=== PATIENT | female | born 1995 ===

== ENCOUNTER 2023-12-04 20:44 | Observation (INO) | payer BC, SELFPAY ==
[2023-12-04] MEDS: LR 1000 IV ×2 (21:35→23:47)
[2023-12-04 21:41] VITALS: BP 111/70; BMI 29.1
[2023-12-04] MEDS: ADALAT 20 MG PO (21:53)
[2023-12-04] MEDS: CELESTONE SOLUSPAN 2 MG IM (21:56)
[2023-12-04 22:20] LABS: % Basophils 0.3 % (0-2); % Eosinophils 0.9 % (0-6); % Immature Granulocytes 0.6 % (0-0.5); % Lymphocytes 21.2 % (20.5-51.1); % Monocytes 8.3 % (1.7-9.3); % Neutrophils 68.7 % (42.2-75.2); Absolute Eosinophils 0.1 10^3/uL (0-0.7); Absolute Immature Granulocytes 0.1 10^3/uL (0-0.05); Absolute Lymphocytes 2.2 10^3/uL (1.2-3.4); Absolute Monocytes 0.9 10^3/uL (0.1-0.6); Absolute Neutrophils 7.1 10^3/uL (1.4-6.5); Hematocrit 31.5 % (37.0-47.0); Hemoglobin 11.5 g/dL (12.0-16.0); Mean Corp Hgb Conc. 36.5 g/dL (33.0-37.0); Mean Corpuscular Hgb 31.1 pg (27.0-31.0); Mean Corpuscular Volume 85.1 fL (81.0-99.0); Mean Platelet Volume 11.5 fL (7.4-10.4); Nucleated Red Blood Cells % 0 %; Platelet Count 210 10^3/uL (130-400); Red Cell Dist. Width 12.2 % (11.5-14.5); White Blood Cell Count 10.3 10^3/uL (4.8-10.8)
[2023-12-04 22:31] LABS: Urine Albumin Negative (Neg - Trace); Urine Bilirubin Negative (Negative); Urine Character Clear (Clear); Urine Color Yellow; Urine Glucose Negative (Negative); Urine Ketone Negative (Negative); Urine Leukocyte Negative (Negative); Urine Nitrite Negative (Negative); Urine Occult Blood Negative (Negative); Urine Urobilinogen Negative (Neg - 1+)
[2023-12-05] MEDS: ADALAT 10 MG PO ×4 (04:17→21:56)
--- NOTE | 2023-12-05 13:20 | CON.NEO ---
Consultation
-
Date/Time Consultation Requested: 12/05/23 @ 0710
Date/Time Consultation Performed: 12/05/23 @ 1324
Requesting Provider: José Miguel
Performing Provider: Katelyn Witt
Reason for Consultation: 28 yo , @ 32 6/7 weeks admitted for possible pretem labor
Consultation - Neonatology
Maternal Labs
Blood Type: O Positive
Antibody Screen: Negative
RPR: Nonreactive
Rubella: Immune
Hep B S Ag: Negative
HIV: Nonreactive
Consult
Points discussed at consult:
- Management at delivery including the possibility of CPAP/intubation/surfactant discussed
- Respiratory: RDS possibility with possibility of worsening for 24-48 hrs, management including CPAP/surfactant/ventilator support may be required
- Nutrition: Hypoglycemia, need for IV fluids, gradual feed advance, Gavage feeding, importance of colostrum feeding, initiation of expression of colostrum within 3-4 hours, availability of donor milk, safety fo donor milk etc. were discussed.
- Procedures: Intubation, CPAP, IV placement, blood tests, umbilical arterial or venous lines, gavage feedings were discussed
- CVS: possibility of PDA not discussed in detail at this time
- SKY CAP: Rare possibility of IVH and need for head US, grading of IVH and senior living effects of Grade III/IV although extremely rare at >32 weeks were discussed
- Jaundice possibility and need for phototherapy discussed
- Family Centered Care: Discussed FCC with emphasis on parental participation during sign off and during management rounds and is encouraged. Availability of kathy eyes camera also discussed
Mom and Dad were given the opportunity to ask questions throughout and open invitation to call if any questions come as they absorb all the information given so far.
Face to Face Time
Total Pozw-za-Zdoc Time (in Minutes): <30 mins
Attending Electronics Tech: Jackie Joe MD
Electronics Tech
[2023-12-05] MEDS: CELESTONE SOLUSPAN 2 MG IM (21:56)
[2023-12-06] MEDS: ADALAT PO ×2 (07:01→09:58)
== END 2023-12-06 18:00 | disposition home or self-care (01) ==
LOC: LDRP 20:44
PROVIDERS: ADMITTING PHYSICIAN Obstetrics & Gynecology; OTHER PHYSICIAN Pediatrics
DX: O60.03 Preterm labor without delivery, third trimester (principal); Z3A.32 32 weeks gestation of pregnancy; O43.123 Velamentous insertion of umbilical cord, third trimester; Z88.2 Allergy status to sulfonamides; Z86.16 Personal history of COVID-19; Z91.81 History of falling; O99.343 Other mental disorders complicating pregnancy, third trimester; F41.9 Anxiety disorder, unspecified; O36.8330 Maternal care for abnormalities of the fetal heart rate or rhythm, third trimester, not applicable or unspecified
CPT/HCPCS: 81003; 82731; 85025; 86850; 86900; 86901; 87070; 87077; 87147; G0378

== ENCOUNTER → 2023-12-23 13:21 | Outpatient (REF) | payer BC, SELFPAY | LOC: PNTC 13:21 | PROVIDERS: ATTENDING PHYSICIAN Obstetrics & Gynecology | DX: O43.123 Velamentous insertion of umbilical cord, third trimester (principal) | CPT/HCPCS: 59025; 76818 ==

== ENCOUNTER 2024-01-07 09:13 | Inpatient (IN) | payer BC, SELFPAY ==
[2024-01-07 09:17] VITALS: BP 150/87; BMI 29.1
[2024-01-07] MEDS: LR 1000 IV ×3 (09:45→17:20)
[2024-01-07] MEDS: PENICILLIN 110 UNITS IV (10:06)
[2024-01-07 10:15] LABS: % Basophils 0.2 % (0-2); % Eosinophils 0.5 % (0-6); % Immature Granulocytes 1.4 % (0-0.5); % Lymphocytes 15.9 % (20.5-51.1); % Monocytes 6.9 % (1.7-9.3); % Neutrophils 75.1 % (42.2-75.2); Absolute Eosinophils 0.1 10^3/uL (0-0.7); Absolute Immature Granulocytes 0.1 10^3/uL (0-0.05); Absolute Lymphocytes 1.5 10^3/uL (1.2-3.4); Absolute Monocytes 0.6 10^3/uL (0.1-0.6); Absolute Neutrophils 6.9 10^3/uL (1.4-6.5); Hematocrit 31.2 % (37.0-47.0); Hemoglobin 11.1 g/dL (12.0-16.0); Mean Corp Hgb Conc. 35.6 g/dL (33.0-37.0); Mean Corpuscular Hgb 30.4 pg (27.0-31.0); Mean Corpuscular Volume 85.5 fL (81.0-99.0); Mean Platelet Volume 12.1 fL (7.4-10.4); Nucleated Red Blood Cells % 0 %; Platelet Count 208 10^3/uL (130-400); Red Blood Cell Count 3.65 10^6/uL (4.20-5.40); Red Cell Dist. Width 12.3 % (11.5-14.5); White Blood Cell Count 9.2 10^3/uL (4.8-10.8)
[2024-01-07] MEDS: PITOCIN 30 UNITS/NSS 500 ML IV (12:32)
[2024-01-07] MEDS: SUBLIMAZE 100 MCG EPIDURAL (14:07)
[2024-01-07] MEDS: FENTANYL/BUPIVACAINE 100 EPIDURAL (14:07)
[2024-01-07] MEDS: PENICILLIN 55 UNITS IV ×2 (14:26→18:00)
[2024-01-08] MEDS: MOTRIN 600 MG PO ×4 (00:09→21:21)
[2024-01-08 04:55] LABS: Hematocrit 28.4 % (37.0-47.0); Hemoglobin 9.9 g/dL (12.0-16.0)
[2024-01-08] MEDS: PRENATAL PLUS 1 TABLET PO (08:09)
[2024-01-08] MEDS: SENOKOT-S 1 TABLET PO (08:09)
[2024-01-08] MEDS: TYLENOL 650 MG PO ×3 (08:24→21:21)
[2024-01-08 16:30] LABS: Syphilis/T. pallidum Ab Reflex Negative (Negative)
[2024-01-09] MEDS: FEOSOL 325 MG PO (08:34)
[2024-01-09] MEDS: PRENATAL PLUS 1 TABLET PO (08:34)
== END 2024-01-09 10:48 | disposition home or self-care (01) | DRG 807 ==
LOC: LDRP 09:13
PROVIDERS: ADMITTING PHYSICIAN Obstetrics & Gynecology
PROC: 0UQMXZZ Repair Vulva, External Approach (ICD-10-PCS; 2024-01-07)
PROC: 10E0XZZ Delivery of Products of Conception, External Approach (ICD-10-PCS; 2024-01-07)
DX: O99.824 Streptococcus B carrier state complicating childbirth (principal); Z37.0 Single live birth; O70.0 First degree perineal laceration during delivery; Z3A.37 37 weeks gestation of pregnancy
CPT/HCPCS: 88307; 85014; 85018; 85025; 86780; 86850; 86900; 86901

== ENCOUNTER → 2025-04-06 13:41 | Outpatient (REF) | payer BC, SELFPAY | LOC: PNTC 13:41 | PROVIDERS: ATTENDING PHYSICIAN Obstetrics & Gynecology | DX: Z36.0 Encounter for antenatal screening for chromosomal anomalies (principal); Z36.82 Encounter for antenatal screening for nuchal translucency; Q90.0 Trisomy 21, nonmosaicism (meiotic nondisjunction) | CPT/HCPCS: 76801; 76813 ==

== ENCOUNTER 2025-04-20 17:55 | Emergency (ER) | payer BC, SELFPAY ==
[2025-04-20 17:55] VITALS: BMI 26.4
[2025-04-20 18:00] VITALS: BP 100/69; BP 101/66
--- NOTE | 2025-04-20 18:42 | ED.GENMED ---
History of Present Illness
General
Chief Complaint: Abdominal Symptoms
Source: patient
Exam Limitations: none
Time Seen by Provider: 04/20/25 18:35
History of Present Illness
History of Present Illness:
30yoF with no significant past medical history presenting for evaluation of vomiting. Symptoms began around 11am this morning. She reports vomiting 30+ times since then. She is also having diarrhea 'here and there.' She reports tingling in her
extremities and cramping in her hands. Her is also sick with similar symptoms. Of note, patient had a D&C about a week ago at [facility] at 12 weeks due to Down syndrome. She denies any pelvic pain or vaginal bleeding. No fevers or
abdominal pain. No recent travel or suspicious food intake.
Past History
Past History
ED Past Medical History: None
ED Past Surgical History: Gynecological
Social History
Tobacco: Non-smoker
Alcohol: Occasional
Drug: None
Living: with roommate
Employment: Employed
Phy Exam
General Physical Exam
General Presentation: well appearing and no apparent distress
General Skin: warm and dry
General Habitus: normal
General Mental: alert
ENT Exam
ENT Exam: normocephalic
Cardiovascular Exam
Cardiovascular Exam: regular rate/rhythm
Pulmonary Exam
Pulmonary Exam: lungs clear, no respiratory distress, no rales, no crackles, no rhonchi and no wheezing
Gastrointestinal Exam
Gastrointestinal Exam: non tender, soft and non distended
Neurological Exam
Neurological Exam: alert
[place] Coma Scale
Eye Opening: Spontaneous
Verbal Response: Oriented
Motor Response: Obeys Commands
GCS Total Score: 15
Skin Exam
Skin Exam: normal color and warm/dry
Psychiatric Exam
Psychiatric Exam: normal mood/affect
Course
Orders/Labs/Results
Orders:
Orders
04/20/25 18:41
Cardiac Monitoring- Treatment ONCE
0.9% Sodium Chloride 1000 ml [Nss] 1,000 ml IV BOLUS
Ondansetron HCl [Zofran] 4 mg PO NOW STA
04/20/25 18:57
Complete Blood Count/With Diff Urgent
Comprehensive Metabolic Panel Urgent
Lipase Urgent
Magnesium Urgent
Abnormal Lab Results
04/20/25
18:57
WBC 11.2 H 10^3/uL
(4.8-10.8)
MPV 10.8 H fL
(7.4-10.4)
Absolute Neuts (auto) 10.4 H 10^3/uL
(1.4-6.5)
Absolute Lymphs (auto) 0.4 L 10^3/uL
(1.2-3.4)
Neutrophils % 92.4 H %
(42.2-75.2)
Lymphocytes % 3.8 L %
(20.5-51.1)
Glucose 108 H mg/dl
(70-99)
04/20/25 18:57
04/20/25 18:57
Vital Signs
Initial and Last Documented VS:
Initial Vital Signs
Temp Pulse Resp BP Pulse Ox
98.1 F 92 18 101/66 98
04/20/25 18:00 04/20/25 18:00 04/20/25 18:00 04/20/25 18:00 04/20/25 18:00
Last Documented Vital Signs
Temp Pulse Resp BP Pulse Ox
98.2 F 99 22 114/73 97
04/20/25 19:12 04/20/25 20:16 04/20/25 20:16 04/20/25 20:33 04/20/25 20:33
MDM/Problems Addressed
Differential Diagnosis Includes:
30yoF here with n/v that began at 11am this morning. also checked in with similar complaints. S/p D&C about a week ago. Denies abd/pelvic pain and vaginal bleeding. VSS. She is well appearing in no distress. Abdominal exam is benign.
Differential diagnosis includes but is not limited to: gastroenteritis, viral illness, dehydration, doubt acute surgical process
Initial ED plan: Check abdominal labs and magnesium. No indication for imaging as abdominal exam is benign. IV Zofran and fluid bolus for symptoms.
*Pulse Oximetry
Patient hypoxic: no (97%)
*Critical Care Note
Total Time (30-74mins, 75-104mins- exclusive of procedures): Not Applicable
Update Note
Update Note:
Labs reveal a mild leukocytosis with a white count 11.2, likely reactive secondary to vomiting. Remainder of labs unremarkable including normal electrolytes and renal function. Patient feeling significantly improved on reassessment. Patient able
to tolerate p.o. fluids. She is stable for discharge. Suspect viral gastroenteritis given that family members are also ill. Prescription for Zofran provided and supportive care discussed. Advised follow-up with PCP and ED return precautions
reviewed.
ED Attending Note
-
Portions of this chart may have been created with voice recognition software.� Occasional wrong word or��sound alike� substitutions may have occurred due to the inherent limitations of voice recognition software.
Discharge Plan
Departure
Patient Disposition: Home (Routine Discharge)
Date of Disposition: 04/20/25
Time of Disposition: 20:37
Patient with high blood pressure during this ER visit?: No
Discharge Problem:
Nausea and vomiting
Instructions: Nausea and Vomiting, Adult (DC)
Prescriptions:
New
ondansetron 4 mg tablet,disintegrating
4 mg PO Q6H PRN (Reason: nausea and vomiting) Qty: 20 0RF
No Action
vit-iron fum-folic ac [ Tablet] 28 mg iron- 800 mcg Tablet
1 tab PO DAILY
ibuprofen 600 mg Tablet
600 mg PO Q6HPRN PRN (Reason: moderate pain/cramps) Qty: 90 0RF
Referrals:
[facility] [Provider Group]
UNKNOWN - PT DOES,NOT KNOW [Family Provider]
Activity Restrictions/Additional Instructions:
Take Zofran as needed for nausea. Drink plenty of fluids and eat a bland diet (bananas, rice, applesauce, toast).
Please follow-up with your family doctor. Return to the ER with any new or worsening symptoms.
Interventions
Interventions:
*Risk Screen - Suicide Last Done: 04/20/25 18:00
*General Assessment Last Done: 04/20/25 18:02
*Neglect/Abuse Screening Last Done: 04/20/25 18:41
*ED- Fall Risk Assessment Last Done: 04/20/25 18:41
*Nursing Disposition Last Done: 04/20/25 20:43
VN-Fzftfb-Frafefowek Assessment Last Done: 04/20/25 18:41
Discharge Date and Time
Discharge Date/Time: 04/20/25 20:43
Print Language: PORTUGUESE
[2025-04-20] MEDS: ZOFRAN 4 MG PO (18:55)
[2025-04-20] MEDS: NSS 1000 IV (18:55)
[2025-04-20 19:12] VITALS: BP 104/64
[2025-04-20 19:12] LABS: % Basophils 0.4 % (0-2); % Eosinophils 0.1 % (0-6); % Immature Granulocytes 0.4 % (0-0.5); % Lymphocytes 3.8 % (20.5-51.1); % Monocytes 2.9 % (1.7-9.3); % Neutrophils 92.4 % (42.2-75.2); Absolute Lymphocytes 0.4 10^3/uL (1.2-3.4); Absolute Monocytes 0.3 10^3/uL (0.1-0.6); Absolute Neutrophils 10.4 10^3/uL (1.4-6.5); Hematocrit 40.5 % (37.0-47.0); Hemoglobin 14.5 g/dL (12.0-16.0); Mean Corp Hgb Conc. 35.8 g/dL (33.0-37.0); Mean Corpuscular Hgb 30.1 pg (27.0-31.0); Mean Platelet Volume 10.8 fL (7.4-10.4); Nucleated Red Blood Cells % 0 %; Platelet Count 247 10^3/uL (130-400); Red Blood Cell Count 4.82 10^6/uL (4.20-5.40); Red Cell Dist. Width 11.6 % (11.5-14.5); White Blood Cell Count 11.2 10^3/uL (4.8-10.8)
[2025-04-20 19:30] VITALS: BP 116/68
[2025-04-20 19:39] LABS: ALT (SGPT) 17 U/L (0-35); AST (SGOT) 18 U/L (14-36); Albumin 4.6 g/dl (3.5-5.0); Alkaline Phosphatase 63 U/L (38-126); Blood Urea Nitrogen 16 mg/dl (7-17); Calcium 9.7 mg/dl (8.4-10.2); Carbon Dioxide 23 mmol/L (22-30); Chloride 106 mmol/L (98-107); Estimated Creatinine Clearance 104 ml/min; Glucose 108 mg/dl (70-99); Lipase 78 U/L (23-300); Magnesium 1.6 mg/dl (1.6-2.3); Potassium 3.9 mmol/L (3.5-5.1); Sodium 142 mmol/L (135-145); Total Bilirubin 0.9 mg/dl (0.2-1.3); Total Protein 7.9 g/dl (6.3-8.2); eGFR > 60.00
[2025-04-20 20:00] VITALS: BP 110/65
[2025-04-20 20:33] VITALS: BP 114/73
== END 2025-04-20 20:43 | disposition home or self-care (01) ==
LOC: EMR 17:55
PROVIDERS: Physician Assistant; EMERGENCY PHYSICIAN Emergency Medicine
DX: R11.2 Nausea with vomiting, unspecified (principal)
CPT/HCPCS: 99284; 96360; 80053; 83690; 83735; 85025